=== PATIENT | male | born 1985 | race Caucasian/White ===

== ENCOUNTER 2023-11-17 02:06 | Day surgery (SDC) | payer OTHER, SELFPAY ==
[2023-11-15 08:33] VITALS: BMI 22.6
[2023-11-17 07:56] VITALS: BP 109/60; PULSE 60; RESP 18; TEMP 37; O2SAT 100
[2023-11-17] MEDS: LACTATED RINGERS 1,000 ML 150 ML IV CONT (07:57)
--- NOTE | 2023-11-17 08:13 | P.PNAN_ITS ---
Anes - Initial Pre Proc Eval Procedure: Operation Date: 11/17/23 09:00 Proposed Procedures p Esophagogastroduodenoscopy & Colonoscopy - Danilo Aly MD Date/Time: 11/17/23 08:13 Surgeon: Danilo Aly MD Pre Op Diagnosis: Anemia, Melena Patient Data Age: 38 Gender: M Height: 1.73 m Weight: 67.5 kg Last Vital Signs Temp 37.0 C 11/17/23 07:56 Pulse 60 11/17/23 07:56 Resp 18 11/17/23 07:56 BP 109/60 11/17/23 07:56 Pulse Ox 100 11/17/23 07:56 O2 Del Method Room Air 11/17/23 07:56 Allergies Allergy/AdvReac Type Severity Reaction Status Date / Time No Known Allergies Allergy Verified 11/17/23 07:51 Home Medications Medication Instructions Recorded Confirmed Type duloxetine 20 mg capsule,delayed 20 mg PO HS 11/15/23 11/17/23 History release prazosin 2 mg capsule 2 mg PO HS 11/15/23 11/17/23 History sertraline 100 mg tablet 100 mg PO DAILY 11/15/23 11/17/23 History Patient hx anesthesia problems: none Family hx anesthesia problems: none Results Review: All pre-operative results and documents have been reviewed as part of the pre- operative evaluation. [facility] Past Medical History Medical History (Updated 11/17/23 @ 08:16 by Zackary Kimbrough MD) Anxiety Tibia fracture Surgical History Surgical History (Updated 11/17/23 @ 08:16 by Zackary Kimbrough MD) History of surgery on lower extremity Social History Social History Substance use: unknown Substance use type: opiates Living arrangements: incarcerated Anes - Eval Final PreProcedure Day of Procedure 11/17/23 08:13 Patient weight: normal Heart: regular rate and rhythm Lungs: clear to auscultation Airway: Mallampati scale class II Neurological: alert and oriented Last oral intake: >/= 8 hours ASA classification: II Emergent: no Anesthetic plan: proceed Anesthesia type and monitoring: general GIVS and standard monitoring Results Review: All pre-operative results and documents have been reviewed as part of the pre- operative evaluation. Informed Consent: The patient's anesthetic plan and its attendant risks and benefits were discussed with the patient/family/POA. Questions were solicited and answers pr ovided to the satisfaction of the patient/family/POA.
--- NOTE | 2023-11-17 08:36 | PM.HPGS ---
History of Present Illness History of Present Illness Consent: Risks, benefits, and alternatives have been discussed and questions answered. Patient agrees to proceed with procedure. Chief complaint: Anemia, Melena Narrative: Zackary Guevara III is a 38 year old male here for first egd and colonoscopy, noted blood in stools. He is a prisoner. Review of Systems Review of Systems: All systems reviewed & are unremarkable except as noted in HPI and below PMFSH Past Medical History Medical History (Updated 11/17/23 @ 08:37 by Danilo Aly MD) Anemia Anxiety Tibia fracture Surgical History Surgical History (Updated 11/17/23 @ 08:16 by Zackary Kimbrough MD) History of surgery on lower extremity Social History Social History Substance use: unknown Substance use type: opiates Living arrangements: incarcerated Meds Home Medications and Allergies Home Medications Medication Instructions Recorded Confirmed Type duloxetine 20 mg capsule,delayed 20 mg PO HS 11/15/23 11/17/23 History release prazosin 2 mg capsule 2 mg PO HS 11/15/23 11/17/23 History sertraline 100 mg tablet 100 mg PO DAILY 11/15/23 11/17/23 History Allergies Allergy/AdvReac Type Severity Reaction Status Date / Time No Known Allergies Allergy Verified 11/17/23 07:51 Vital Signs Vital Signs - 24 hr 11/17/23 07:56 Temperature 98.6 F Pulse Rate 60 Respiratory Rate 18 Blood Pressure 109/60 Pulse Oximetry 100 Oxygen Delivery Room Air Exam Const: General: comfortable and no acute distress HENMT: Face/Nose/Sinus: Normal nares present Eyes: General: appearance normal, both eyes and all related structures Neck: Neck: no JVD Resp: Auscultation: clear to auscultation bilaterally Cardio: Rate: regular rate Rhythm: regular rhythm GI: Inspection: non-distended GI Palp: Yes Soft to palpation Skin: General skin exam: normal color Other: tattoos Neuro: General: gait normal Speech: normal speech Extrem: General: normal to inspection Psych: Mental Status: mental status grossly normal Assessment and Plan Assessment and plan (1) Anemia: Code(s): D64.9 - Anemia, unspecified Status: Acute Assessment and Plan: egd and colonoscopy
--- NOTE | 2023-11-17 08:53 | SUR.OPER ---
EGD end time: 847, Colonoscopy start time: 851
[2023-11-17 09:07] VITALS: BP 90/50; PULSE 58; RESP 14; O2SAT 100
[2023-11-17 09:17] VITALS: BP 106/76; PULSE 78; RESP 20; O2SAT 100
[2023-11-17 09:27] VITALS: BP 112/75; PULSE 74; RESP 19; O2SAT 100
== END 2023-11-17 09:42 | disposition home or self-care (01) ==
PROVIDERS: Visit Provider Internal Medicine Gastroenterology
PROC: 0DJ08ZZ Inspection of Upper Intestinal Tract, Via Natural or Artificial Opening Endoscopic (ICD-10-PCS; CPT 43235; principal; 2023-11-17 09:00)
DX: K21.00 Gastro-esophageal reflux disease with esophagitis, without bleeding (principal); K64.8 Other hemorrhoids; D64.9 Anemia, unspecified; F41.9 Anxiety disorder, unspecified; Z98.890 Other specified postprocedural states
CPT/HCPCS: 43239; 45378; 88305; J2003; J2704; J7120